=== PATIENT | female | born 1975 | race African-American/Black ===

== ENCOUNTER 2017-01-20 01:39 | Emergency (ER) | payer SELFPAY ==
[2017-01-20] MEDS ORDERED: NORMAL SALINE 1000 ML 1,000 ML IV ONE (02:42)
--- NOTE | 2017-01-20 02:42 | ER Document Report ---
ED Headache - General Chief Complaint: Headache Stated Complaint: PAIN ON LEFT SIDE OF HEAD Time Seen by Provider: 01/20/17 02:11 TRAVEL OUTSIDE OF THE [place] IN LAST 30 DAYS: No - HPI Patient complains to provider of: Headache - left side of her head behind her left eye, states she has ahd two migraines previously but she is normally able to sleep them off. states she took 400mg of motrin at home, took a nap and woke up with the headache still, denies aura, light sensitivity, vision changes, weakness, nausea, vomiting Onset: This afternoon Timing: Still present Quality of pain: Achy Context: denies: Head injury Preceding symptoms: denies: Typical of prior aura(s), Visual disturbance Associated symptoms: None. denies: Chills, Confusion, Dizzy, Double/blurred vision, Fainting, Fever, Lightheaded, Memory loss, Motion sickness, Motor/ sensory loss to arm, Motor/sensory loss to leg, Nausea/vomiting, Neck pain, Photophobia, Speech problems, Stiff neck, Sweaty, Tingling/numb sensation, Trouble walking, Other Exacerbated by: denies: Light, Noise, Movement, Position, Other Similar symptoms previously: No Recently seen / treated by doctor: No - Related Data Allergies/Adverse Reactions: No Known Allergies Allergy (Unverified 06/13/13 10:12) Past Medical History - Social History Smoking Status: Never Smoker Family History: CAD, Hypertension Patient has suicidal ideation: No Patient has homicidal ideation: No Renal/ Medical History: Denies: Hx Peritoneal Dialysis Past Surgical History: Reports: Hx Hysterectomy, Hx Tubal Ligation - Immunizations Hx Diphtheria, Pertussis, Tetanus Vaccination: Yes Review of Systems - Review of Systems Constitutional: No symptoms reported EENT: No symptoms reported Cardiovascular: No symptoms reported Respiratory: No symptoms reported Neurological/Psychological: See HPI -: Yes All other systems reviewed and negative Physical Exam - Vital signs Vitals: Temp Pulse Resp BP 98.6 F 77 16 135/86 H 01/20/17 01:44 01/20/17 01:44 01/20/17 01:44 01/20/17 01:44 - General General appearance: Appears well, Alert In distress: None - HEENT Head: Normocephalic, Atraumatic Eyes: Normal. No: Pale conjunctiva, Periorbital ecchymosis, Periorbital edema, Scleral icterus, Tears, Other Conjunctiva: Normal. No: Icteric, Injected, Purulent discharge, Other Extraocular movements intact: Yes Eyelashes: Normal Pupils: PERRL Ears: Normal External canal: Normal. No: Blood in canal, Cerumen impaction, Erythema, Foreign body, Swollen, Other Tympanic membrane: Normal. No: Bulging, Hemotympanum, Injected, Loss of landmarks, Perforation, Purulent effusion, Retracted, Serous effusion, Other Sinus: Normal. No: Tenderness Nasal: Normal. No: Bloody discharge, Lm deformity, Ecchymosis, Epistaxis, Purulent discharge, Septal hematoma, Swelling, Clear rhinorrhea, Other Mucous membranes: Normal Pharynx: Normal. No: Blood in hypopharynx, Erythema, Exudate, Peritonsillar abscess, Post nasal drainage, Retropharyngeal abscess, Tonsillar hypertrophy, Uvular edema, Potential airway comprom., Other Neck: Normal. No: Anterior cervical chain, Posterior cervical chain, Brudzinski , Carotid bruit, Kernig's, Lymphadenopathy, Meningismus, Neck mass, Shotty nodes , Subcutaneous emphysema, Supple, Thyroid nodule, Thyromegally, Other - Respiratory Respiratory status: No respiratory distress Chest status: Nontender Breath sounds: Normal Chest palpation: Normal - Cardiovascular Rhythm: Regular Heart sounds: Normal auscultation, S1 appreciated, S2 appreciated Gallop: None auscultated Pulses: Normal: Radial Normal capillary refill: Yes - Neurological Neuro grossly intact: Yes Cognition: Normal Orientation: AAOx4 [place] Coma Scale Eye Opening: Spontaneous [place] Coma Scale Verbal: Oriented [place] Coma Scale Motor: Obeys Commands [place] Coma Scale Total: 15 Speech: Normal Cranial nerves: Normal. No: Facial palsy, Forehead sparing, Gaze palsy, Sensory deficit, Tongue deviation, Other Cerebellar coordination: Normal. No: Gait ataxia, Heel-pro, Finger-nose rhombey, Rapid alt. movements, Truncal ataxia, Other Motor strength normal: LUE, RUE, LLE, RLE Additional motor exam normals: Equal roll panner. No: Weakness Sensory: Normal - Skin Skin Temperature: Warm Skin Moisture: Dry Skin Color: Normal Skin Turgor: Elastic Course - Re-evaluation Re-evalutation: 01/20/17 05:09 Patient does not have any focal neurologic deficits, nuchal rigidity, vital signs are within normal limits no papilledema. Patient is otherwise no acute distress and hemodynamically stable. Low index for suspicion of acute subarachnoid hemorrhage, meningitis or mass. Low suspicion for acute life- threatening etiology with intact neuro exam therefore no additional imaging or laboratory testing is indicated. For complete resolution of her symptoms after IV fluids and migraine cocktail. Will discharge patient home with strict follow -up with PCP within the next week. - Vital Signs Vital signs: Temp Pulse Resp BP Pulse Ox 98.3 F 76 16 133/89 H 97 01/20/17 05:04 01/20/17 05:04 01/20/17 05:04 01/20/17 05:04 01/20/17 05:04 - Diagnostic Test Radiology reviewed: Image reviewed, Reports reviewed Discharge - Discharge Clinical Impression: Headache Condition: Good Disposition: HOME, SELF-CARE Additional Instructions: HEADACHE: The physician does not feel that the headache you are experiencing has a serious underlying cause. Most headaches are due to emotional stress, with resultant muscle tension (tension headache). Occasionally, headaches are secondary to changes in the blood vessels of the scalp (vascular headache and migraine headache). Sometimes, a headache is the first symptom of another developing illness, such as a viral infection. You have no evidence of stroke, bleeding, meningitis, or other serious cause of your headache. The treatment of headaches varies with the severity and cause of the pain. Not all headaches need pain shots. In fact, there is evidence that using narcotics for headaches may make them worse in the long run. The physician will determine the therapy that's in your best interest. If you develop a fever, if the headache is different from any you've previously experienced, or if the headache progressively worsens, then call your physician at once or go to the emergency room. REGLAN (METOCLOPRAMIDE): Reglan has been prescribed. This medicine affects the stomach and intestines. It can be used to treat nausea and vomiting, to prevent reflux of stomach acid up into the esophagus, or to increase the contractions of the stomach and intestines. It is often prescribed for esophagitis, and for paralysis of the stomach in diabetics. Reglan can cause either mild restlessness or drowsiness. You should contact the doctor at once if you become extremely restless, anxious, or cannot sleep, or if you develop uncontrollable motions of the lips, tongue, or jaw. Do not take alcohol with this medicine. Do not drive or operate machinery until you have been taking this medicine long enough to know how it affects you. Call the doctor if you develop abdominal pains, lightheadedness, black stool, or blood in the stool or vomitus. USE OF DIPHENHYDRAMINE: Diphenhydramine (Benadryl) is an antihistamine and has been recommended to help treat your headache and to prevent side effects of other medications used to treat headaches. The medication can be repeated four times daily. Age Elixir (12.5 mg/tsp) 25 mg pill adult 1-2 tabs Antihistamines may cause drowsiness, especially with the first dose. Do not operate machinery or drive while under the effects of the medication. Do not combine the medication with alcohol, or with any other medication without talking to your doctor. ANTINAUSEA MEDICATION: You have been given a medication to suppress nausea and vomiting. This type of medication can be given as a shot, pill, or suppository. It will usually last for many hours. Pills and shots usually last six to eight hours, suppositories last about 12 hours. For the typical illness, only one or two doses of the medication may be necessary. Mild lightheadedness may occur. This type of medicine can cause drowsiness. Do not drive or operate dangerous machinery while under its influence. Do not mix with alcohol. See your doctor at once if you have muscle spasms or tightness, or uncontrollable motions (particularly of the neck, mouth, or jaw). Persistent vomiting or severe lightheadedness should also be evaluated by the physician. TORADOL INJECTION: You have been given an injection of ketorolac tromethamine (Toradol). This is an excellent, safe drug for pain control. It also has potent antiinflammatory action. You should have significant pain relief within about one hour. Toradol is not addicting and is non-sedating. It does not interfere with driving or work. Call or return if you develop itching, hives, shortness of breath, or rash. FOLLOW-UP CARE: If you have been referred to a physician for follow-up care, call the physician s office for an appointment as you were instructed or within the next two days. If you experience worsening or a significant change in your symptoms, notify the physician immediately or return to the Emergency Department at any time for re-evaluation. Referrals: COOKIE VALLEJO MD [Primary Care Provider] - Follow up as needed
--- NOTE | 2017-01-20 03:18 | RADIOLOGY REPORT (SQ) ---
EXAM DESCRIPTION: CT HEAD WITHOUT COMPLETED DATE/TIME: 01/20/2017 3:10 am REASON FOR STUDY: headache COMPARISON: None. TECHNIQUE: Axial images acquired through the brain without intravenous contrast. Images reviewed wi th bone, brain and subdural windows. Images stored on PACS. All CT scanners at this facility use dose modulation, iterative reconstruction, and/or weight based d osing when appropriate to reduce radiation dose to as low as reasonably achievable (ALARA). [facility]: Dose Right [facility]: CareDose [facility]: Dose Right [facility]: Teradose 4D [facility]: [facility] RADIATION DOSE: Up-to-date CT equipment and radiation dose reduction techniques were employed. CTDIv ol: 64.6 mGy. DLP: 1163 mGy-cm. mGy. LIMITATIONS: None. FINDINGS: VENTRICLES: Normal size and contour. CEREBRUM: No masses. No hemorrhage. No midline shift. No evidence for acute infarction. Normal gra y/white matter differentiation. No areas of low density in the white matter. CEREBELLUM: No masses. No hemorrhage. No alteration of density. No evidence for acute infarction. EXTRAAXIAL SPACES: No fluid collections. No masses. ORBITS AND GLOBE: No intra- or extraconal masses. Normal contour of globe without masses. CALVARIUM: No fracture. PARANASAL SINUSES: No fluid or mucosal thickening. SOFT TISSUES: No mass or hematoma. OTHER: No other significant finding. IMPRESSION: NORMAL BRAIN CT WITHOUT CONTRAST. EVIDENCE OF ACUTE STROKE: NO. COMMENT: Quality ID # [id number]: Final reports with documentation of one or more dose reduction techniques (e.g., Automated exposure control, adjustment of the mA and/or kV according to patient size, use of iterative reconstruction technique) TECHNICAL DOCUMENTATION: JOB ID: [id number] [employer]- All Rights Reserved
[2017-01-20] MEDS ORDERED: METOCLOPRAMIDE HCL INJ/PF 10 MG/2 ML SDV IV ONE (03:23)
[2017-01-20] MEDS ORDERED: DIPHENHYDRAMINE HCL 50 MG/ML VIAL IV ONE (03:23)
[2017-01-20] MEDS ORDERED: KETOROLAC TROMETHAMINE INJ/PF 30 MG/1 ML SDV IV ONE (03:23)
[2017-01-20 05:21] VITALS: BP 133/89
== END 2017-01-20 05:21 | disposition home or self-care (01) ==
LOC: ER 01:39
DX: R51 Headache (principal); H57.12 Ocular pain, left eye
CPT/HCPCS: 99284; 96361; 96374; 96375; 70450; J1200; J1885; J2765; J7030

== ENCOUNTER 2017-03-21 18:35 | Emergency (ER) | payer SELFPAY ==
[2017-03-21 19:50] LABS: ABSOLUTE BASOPHILS # (AUTO) 0.1 10^3/uL (0.0-0.2); ABSOLUTE EOSINOPHILS # (AUTO) 0.2 10^3/uL (0.0-0.6); ABSOLUTE LYMPHOCYTES (AUTO) 3.4 10^3/uL (0.5-4.7); ABSOLUTE MONOCYTES (AUTO) 0.7 10^3/uL (0.1-1.4); ABSOLUTE NEUT (AUTO) 9.1 10^3/uL (1.7-8.2); BASOPHILS % (AUTO) 0.5 % (0-2); EOSINOPHILS % (AUTO) 1.5 % (0-6); HEMOGLOBIN 13.1 g/dL (12.0-15.5); HGB HCT DIFFERENCE 0.3; MEAN CORPUSCULAR HEMOGLOBIN 27.9 pg (27.0-33.4); MEAN CORPUSCULAR HGB CONC 33.7 g/dL (32.0-36.0); MEAN CORPUSCULAR VOLUME 83 fl (80-97); MONOCYTES % (AUTO) 5.3 % (3-13); RED BLOOD COUNT 4.71 10^6/uL (3.72-5.28); RED CELL DISTRIBUTION WIDTH 13.4 % (11.5-14.0); SEGMENTED NEUTROPHILS % (AUTO) 67.7 % (42-78); WHITE BLOOD COUNT 13.4 10^3/uL (4.0-10.5)
[2017-03-21 20:12] LABS: ANION GAP 11 (5-19); BLOOD UREA NITROGEN 12 mg/dL (7-20); CALCIUM 9.4 mg/dL (8.4-10.2); CARBON DIOXIDE 29 mmol/L (22-30); CHLORIDE 98 mmol/L (98-107); CREATININE RESULT 0.98 mg/dL (0.52-1.25); GLUCOSE 120 mg/dL (75-110); POTASSIUM 3.4 mmol/L (3.6-5.0); SODIUM 138.1 mmol/L (137-145)
--- NOTE | 2017-03-21 20:44 | ER Document Report ---
ED General - General Chief Complaint: Chest Tightness Stated Complaint: CHEST PAIN Time Seen by Provider: 03/21/17 19:19 Notes: Patient is a 42-year-old female without past medical history who presents with 5 days of intermittent chest discomfort with associated palpitations. Patient describes the discomfort mostly as a throbbing, tightening sensation in her left chest and it feels like her heart is in her throat. She states that the discomfort is intermittent and lasts only several seconds then goes away. Nothing seems to trigger the pain and it does resolve spontaneously. She denies a history of similar symptoms in the past. She has no history of coronary artery disease, structural heart disease, connective tissue disorders, or history of DVT or pulmonary embolus. She has not seen her primary doctor regarding today's concerns. She denies any discomfort or symptoms at the time of my assessment. She denies any associated shortness of breath, nausea, vomiting or diaphoresis. TRAVEL OUTSIDE OF THE [place] IN LAST 30 DAYS: No - Related Data Allergies/Adverse Reactions: No Known Allergies Allergy (Verified 03/21/17 18:35) Past Medical History - General Information source: Patient - Social History Smoking Status: Never Smoker Chew tobacco use (# tins/day): No Frequency of alcohol use: None Drug Abuse: None Lives with: Spouse/Significant other Family History: CAD, Hypertension Patient has suicidal ideation: No Patient has homicidal ideation: No Renal/ Medical History: Denies: Hx Peritoneal Dialysis Past Surgical History: Reports: Hx Hysterectomy, Hx Tubal Ligation - Immunizations Hx Diphtheria, Pertussis, Tetanus Vaccination: Yes Review of Systems - Review of Systems Notes: Constitutional: Negative for fever. HENT: Negative for sore throat. Eyes: Negative for visual changes. Cardiovascular: Positive for palpitations and chest discomfort Respiratory: Negative for shortness of breath. Gastrointestinal: Negative for abdominal pain, vomiting or diarrhea. Genitourinary: Negative for dysuria. Musculoskeletal: Negative for back pain. Skin: Negative for rash. Neurological: Negative for headaches, weakness or numbness. 10 point ROS negative except as marked above and in HPI. Physical Exam - Vital signs Vitals: Temp Pulse Resp BP Pulse Ox 99.0 F 81 16 132/82 H 99 03/21/17 19:03 03/21/17 19:03 03/21/17 19:03 03/21/17 19:03 03/21/17 19:03 Interpretation: Normal Notes: PHYSICAL EXAMINATION: GENERAL: Well-appearing, well-nourished and in no acute distress. HEAD: Atraumatic, normocephalic. EYES: Pupils equal round and reactive to light, extraocular movements intact, sclera anicteric, conjunctiva are normal. ENT: nares patent, oropharynx clear without exudates. Moist mucous membranes. NECK: Normal range of motion, supple without lymphadenopathy LUNGS: Breath sounds clear to auscultation bilaterally and equal. No wheezes rales or rhonchi. HEART: Regular rate and rhythm without murmurs ABDOMEN: Soft, nontender, normoactive bowel sounds. No guarding, no rebound. No masses appreciated. EXTREMITIES: Normal range of motion, no pitting or edema. No cyanosis. NEUROLOGICAL: No focal neurological deficits. Moves all extremities spontaneously and on command. PSYCH: Normal mood, normal affect. SKIN: Warm, Dry, normal turgor, no rashes or lesions noted. Course - Re-evaluation Re-evalutation: 03/21/17 20:38 Presentation of chest pain in an otherwise well appearing patient. Low clinical suspicion for ACS given clinical history, exam, EKG without ST elevations or depressions, and negative initial troponin. HEART score less than or equal to 3. PE also seems unlikely given clinical history, absence of tachycardia or dyspnea. Patient is PERC criteria negative. CXR without evidence of pneumothorax or pneumonia. No widened mediastinum. Aortic dissection also seems unlikely given history, symmetric pulses, CXR, and vitals. Symptoms have been ongoing for 7 days at this time making serial troponins not indicated as this would already be elevated if patient was having ongoing infarction. More of her clinical history is not consistent with this that she reports that the discomfort in her chest comes and goes, and is more like a sensation of palpitations. She does have premature atrial contractions on EKG this may be the source of her symptoms. I have encouraged the patient to follow-up closely with cardiology. At this time will discharge with return precautions and follow -up recommendations. Verbal discharge instructions given a the bedside and opportunity for questions given. Medication warnings reviewed. Patient is in agreement with this plan and has verbalized understanding of return precautions and the need for primary care follow-up in the next 24-72 hours. HEART Score: History:0 EC Age:0 Risk Factors:1 Troponin:0 Total: 1 - Vital Signs Vital signs: Temp Pulse Resp BP Pulse Ox 99.0 F 81 14 120/79 100 03/21/17 19:03 03/21/17 19:03 03/21/17 21:01 03/21/17 21:01 03/21/17 21:01 - Laboratory Result Diagrams: 03/21/17 19:35 03/21/17 19:35 Laboratory results interpreted by me: 03/21/17 03/21/17 19:35 19:35 WBC 13.4 H Absolute Neutrophils 9.1 H Potassium 3.4 L Glucose 120 H - Diagnostic Test Radiology reviewed: Image reviewed, Reports reviewed Radiology results interpreted by me: 03/21/17 20:40 Chest x-ray: No acute infiltrate or pneumothorax - EKG Interpretation by Me Additional EKG results interpreted by me: 03/21/17 20:40 Sinus rhythm. Rate 82. No ST elevations or depressions. QTC is 458. PACs are present. Discharge - Discharge Clinical Impression: Chest discomfort, Palpitations Condition: Good Disposition: HOME, SELF-CARE Additional Instructions: Please follow-up with your primary care doctor or a target worker regarding your palpitations and chest discomfort. You do have intermittent premature atrial contractions which may be part of your symptoms. Your labs and chest x-ray are otherwise normal today. Return if you develop chest pain, shortness of breath, pass out, or have any other symptoms that are worrisome to you. Referrals: DIAZ WHITE MD [Primary Care Provider] - Follow up as needed TG GEE MD [ACTIVE STAFF] - Follow up in 3-5 days
--- NOTE | 2017-03-21 21:07 | RADIOLOGY REPORT (SQ) ---
EXAM DESCRIPTION: CHEST SINGLE VIEW COMPLETED DATE/TIME: 03/21/2017 8:57 pm REASON FOR STUDY: chest pain COMPARISON: 08/15/2015 EXAM PARAMETERS: NUMBER OF VIEWS: One view. TECHNIQUE: Single frontal radiographic view of the chest acquired. RADIATION DOSE: NA LIMITATIONS: None. FINDINGS: LUNGS AND PLEURA: No opacities, masses or pneumothorax. No pleural effusion. MEDIASTINUM AND HILAR STRUCTURES: No masses. Contour normal. HEART AND VASCULAR STRUCTURES: Heart normal in size. Normal vasculature. BONES: No acute findings. HARDWARE: None in the chest. OTHER: No other significant finding. IMPRESSION: NO ACUTE RADIOGRAPHIC FINDING IN THE CHEST. TECHNICAL DOCUMENTATION: JOB ID: [id number] [employer]- All Rights Reserved
[2017-03-21 21:33] VITALS: BP 120/79
--- NOTE | 2017-03-21 21:56 | EKG REPORT ---
SEVERITY:- OTHERWISE NORMAL ECG - SINUS RHYTHM ATRIAL PREMATURE COMPLEX : Confirmed by: Tarun Simmons 21-Mar-2017 21:55:27
== END 2017-03-21 21:33 | disposition home or self-care (01) ==
LOC: ER 18:35
DX: R07.89 Other chest pain (principal); I49.1 Atrial premature depolarization; R00.2 Palpitations; Z82.49 Family history of ischemic heart disease and other diseases of the circulatory system
CPT/HCPCS: 36415; 71010; 80048; 84484; 84703; 85025; 93005; 93010; 99285

== ENCOUNTER 2018-07-11 14:28 | Emergency (ER) | payer OTHER ==
[2018-07-11] MEDS ORDERED: METHOCARBAMOL 500 MG TABLET PO ONE (15:06)
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
[2018-07-11 16:00] VITALS: BP 138/79
== END 2018-07-11 16:00 | disposition home or self-care (01) ==
LOC: ER 14:28
DX: S29.012A Strain of muscle and tendon of back wall of thorax, initial encounter (principal); M54.2 Cervicalgia; M79.604 Pain in right leg; M25.511 Pain in right shoulder; V49.50XA Passenger injured in collision with unspecified motor vehicles in traffic accident, initial encounter
CPT/HCPCS: 72110; 72125; 99284

== ENCOUNTER 2018-07-20 11:22 | Emergency (ER) | payer OTHER ==
[2018-07-20 11:29] VITALS: BP 142/88
[2018-07-20] MEDS ORDERED: LIDOCAINE 5% (700 MG) TRANSDERMAL ADH..PATCH TP ONE (12:17)
[2018-07-20] MEDS ORDERED: DEXAMETHASONE SOD PHOS INJ 10 MG/1 ML VIAL IM ONE (12:17)
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
== END 2018-07-20 12:41 | disposition home or self-care (01) ==
LOC: ER 11:22
DX: M25.511 Pain in right shoulder (principal); M79.661 Pain in right lower leg; V49.50XA Passenger injured in collision with unspecified motor vehicles in traffic accident, initial encounter
CPT/HCPCS: 99283; 96372; J1100